=== PATIENT | male | born 1955 | race Caucasian/White ===

== ENCOUNTER 2017-09-27 07:15 | Day surgery (SDC) | payer BC ==
[2017-09-27] MEDS ORDERED: PROPOFOL 10 MG/ML VIAL IV ONE (07:16)
[2017-09-27] MEDS ORDERED: MIDAZOLAM HCL 2MG/2ML VIAL IV ONE (07:16)
[2017-09-27] MEDS ORDERED: LIDOCAINE 2% MDV (20MG/ML) 20ML VIAL IV ONE (07:16)
--- NOTE | 2017-09-27 12:30 | Operative Note ---
DATE OF SURGERY: 09/27/2017 OPERATION: COLONOSCOPY with cold forceps polypectomy. PREOPERATIVE DIAGNOSIS: History of adenomatous colon polyp. POSTOPERATIVE DIAGNOSIS: Diminutive sigmoid polyps, status post cold forceps removal. PREPARATION QUALITY: Good. ESTIMATED BLOOD LOSS: Minimal. SPECIMENS: Sigmoid polyp. COMPLICATIONS: None apparent. PROCEDURE: After informed consent was obtained from the patient, he was placed in the left lateral decubitus position in the endoscopy suite, sedated and monitored by the department of anesthesia. Digital rectal exam was unremarkable. A well-lubricated [id number] colonoscope was inserted into the rectum and advanced to the cecum. Preparation quality was good. The cecum, ileocecal valve, appendiceal orifice, ascending colon, transverse colon, and descending colon were free of inflammatory changes, mass lesions, or polyps. In the sigmoid colon there was a diminutive polyp removed with a cold forceps. Minimal bleeding was noted at the site. The remainder of the sigmoid colon and rectum were unremarkable. J-turn views of the anorectum were unrevealing. The endoscope was straightened, the rectal ampulla deflated, and the endoscope was removed. RECOMMENDATIONS: The patient should resume his medications and diet. I would recommend a repeat exam in 5 years. As always, thank you for allowing me to participate in the healthcare of your patients. CC: AMANDA MIRANDA MD, FACP MTDD
== END 2017-09-27 09:20 | disposition home or self-care (01) ==
LOC: HOP 07:15
PROVIDERS: ATTEND Internal Medicine Gastroenterology
DX: Z12.11 Encounter for screening for malignant neoplasm of colon (principal); Z86.010 Personal history of colon polyps; D12.5 Benign neoplasm of sigmoid colon; I10 Essential (primary) hypertension; E78.00 Pure hypercholesterolemia, unspecified; E11.8 Type 2 diabetes mellitus with unspecified complications

== ENCOUNTER 2017-11-17 14:29 | Emergency (ER) | payer BC ==
[2017-11-17 16:58] LABS: HEMATOCRIT 41.3 % (42.0-52.0); HEMOGLOBIN 14.7 gm/dl (14.0-18.0); MEAN CELL VOLUME 87.9 fl (81-97); MEAN CORPUSCULAR HEMOGLOBIN 31.3 pg (27-33); MEAN CORPUSCULAR HGB CONC 35.6 g/dl (32-36); PLATELET COUNT 252 K/uL (130-400); RED CELL DISTRIBUTION WIDTH 11.7 % (11.5-14.5); WHITE BLOOD COUNT W/O DIFF 9.7 K/uL (4.2-12.2)
[2017-11-17 17:08] LABS: INFLUENZA A NEGATIVE (NEGATIVE); INFLUENZA B NEGATIVE (NEGATIVE); STREP A SCREEN NEGATIVE (NEGATIVE)
[2017-11-17 17:10] LABS: BLOOD UREA NITROGEN 17 mg/dL (8-23); CREATININE 0.8 mg/dL (0.7-1.2); EST GLOMERULAR FILTRATION RATE > 60 mL/min
[2017-11-17 17:11] LABS: TOTAL PROTEIN 6.9 g/dL (6.6-8.7)
[2017-11-17 17:13] LABS: GLUCOSE,RANDOM 129 mg/dL (74-109)
[2017-11-17 17:15] LABS: ALB/GLOB RATIO 1.4 (1.1-1.8); ALKALINE PHOSPHATASE 41 U/L (40-129); ALT/SGPT 27 U/L (<41); AST/SGOT 21 U/L (10.0-50.0)
[2017-11-17 17:38] LABS: ERYTHROCYTE SEDIMENTATION RATE 27 mm/hr (0-20)
--- NOTE | 2017-11-17 17:46 | Emergency Department Record ---
History of Present Illness - General Chief Complaint: Fever Stated Complaint: FEVER,WEAKNESS,DIZZY Time Seen by Provider: 11/17/17 16:17 Source: Patient Mode of Arrival: Ambulatory Limitations: No limitations - History of Present Illness Initial Comments: pt was seen in urgent care on 11/13 for fever and cough. he was started on tamiflu though his test was neg. he got better for a day and then started running a fever again. he has a cough. he has a hx of lymphoma and oncologist was concerned. he also has a rash in his axilla Complaint: Fever Onset/Timin -: Days(s) Maximum Temperature: 101 F Temperature Source: Oral Context: Multiple patients with similar symptoms, Sick contacts Associated Symptoms: Chills, Rash, Shortness of breath Treatments Prior to Arrival: Other Treatment Prior to Arrival Comment:: tamiflu - Related Data Previous Rx's Medication Instructions Recorded Amoxicillin/Potassium Clav 1 each PO BID #20 tablet 11/17/17 [Augmentin 875Mg/125Mg] Allergies Allergy/AdvReac Type Severity Reaction Status Date / Time No Known Drug Allergies Allergy Verified 11/17/17 16:00 Travel Screening - Travel/Exposure Within Last 30 Days Have you traveled within the last 30 days?: No Review of Systems Reviewed: No additional complaints except as noted below Constitutional: Reports: As per HPI. Denies: Chills, Fever, Malaise, Night sweats, Weakness, Weight change Eyes: Reports: As per HPI. Denies: Eye discharge, Eye pain, Photophobia, Vision change ENT: Reports: As per HPI. Denies: Congestion, Dental pain, Ear pain, Epistaxis , Hearing loss, Throat pain Respiratory: Reports: As per HPI. Denies: Cough, Dyspnea, Hemoptysis, Stridor, Wheezes Cardiovascular: Reports: As per HPI. Denies: Arrhythmia, Chest pain, Dyspnea on exertion, Edema, Murmurs, Orthopnea, Palpitations, Paroxysmal nocturnal dyspnea, Rheumatic Fever, Syncope Endocrine: Reports: As per HPI. Denies: Fatigue, Heat or cold intolerance, Polydipsia, Polyuria Gastrointestinal: Reports: As per HPI. Denies: Abdominal pain, Constipation, Diarrhea, Hematemesis, Hematochezia, Melena, Nausea, Vomiting Genitourinary: Reports: As per HPI. Denies: Dysuria, Frequency, Hematuria, Incontinence, Retention, Testicular pain, Testicular mass, Urgency Musculoskeletal: Reports: As per HPI. Denies: Arthralgia, Back pain, Gout, Joint swelling, Myalgia, Neck pain Skin: Reports: As per HPI. Denies: Bruising, Change in color, Change in hair/ nails, Lesions, Pruritus, Rash Neurological: Reports: As per HPI. Denies: Abnormal gait, Confusion, Headache, Numbness, Paresthesias, Seizure, Tingling, Tremors, Vertigo, Weakness Psychiatric: Reports: As per HPI. Denies: Anxiety, Auditory hallucinations, Depression, Homicidal thoughts, Suicidal thoughts, Visual hallucinations Hematological/Lymphatic: Reports: As per HPI. Denies: Anemia, Blood Clots, Easy bleeding, Easy bruising, Swollen glands Past Medical History - SOCIAL HISTORY Smoking Status: Former smoker Alcohol Use: Occasional Drug Use: None - RESPIRATORY Hx Respiratory Disorders: Yes Hx Bronchitis: Yes Hx Pneumonia: Yes (not by xray but treated) - CARDIOVASCULAR Hx Cardio Disorders: Yes Hx Abnormal EKG: Yes Hx Cardiac Cath: Yes (1998) Hx Coronary Stent: Yes (08/2016) - NEURO Hx Neuro Disorders: No - GI Hx GI Disorders: No Hx of Polyps: Yes - Hx Genitourinary Disorders: No - ENDOCRINE Hx Endocrine Disorders: Yes Hx Diabetes: Yes (NIDDM) - MUSCULOSKELETAL Hx Musculoskeletal Disorders: Yes Hx Arthritis: Yes - PSYCH Hx Psych Problems: No - HEMATOLOGY/ONCOLOGY Hx Hematology/Oncology Disorders: Yes Hx Anemia: Yes Hx Cancer: Yes (lymphoma) Hx Blood Transfusions: Yes Hx Blood Transfusion Reaction: No Family Medical History Any Significant Family History?: Yes Hx Heart Disease: Grandparents Physical Exam - General General Appearance: Alert, Oriented x3, Cooperative, Mild distress - Head Head exam: Normal inspection - Eye Eye exam: Normal appearance, PERRL, EOMI Pupils: Normal accommodation - ENT ENT exam: Normal exam, Mucous membranes moist, Normal external ear exam, Normal orophraynx, TM's normal bilaterally Ear exam: Normal external inspection. negative: External canal tenderness Nasal Exam: Normal inspection. negative: Discharge, Sinus tenderness Mouth exam: Normal external inspection, Tongue normal Teeth exam: Normal inspection. negative: Dental caries Throat exam: Normal inspection. negative: Tonsillar erythema, Tonsillar exudate - Neck Neck exam: Normal inspection, Full ROM. negative: Tenderness - Respiratory Respiratory exam: Normal lung sounds bilaterally. negative: Respiratory distress - Cardiovascular Cardiovascular Exam: Normal rhythm, Normal heart sounds, Tachycardia - GI/Abdominal GI/Abdominal exam: Soft, Normal bowel sounds. negative: Tenderness - Rectal Rectal exam: Deferred - exam: Deferred - Extremities Extremities exam: Normal inspection, Full ROM, Normal capillary refill. negative: Tenderness - Back Back exam: Reports: Normal inspection, Full ROM. Denies: Muscle spasm, Rash noted, Tenderness - Neurological Neurological exam: Alert, Normal gait, Oriented X3, Reflexes normal - Psychiatric Psychiatric exam: Normal affect, Normal mood - Skin Skin exam: Dry, Intact, Normal color, Warm Course Vital Signs 11/17/17 16:00 Temperature 100.3 F H Pulse Rate 110 H Respiratory 28 H Rate Blood Pressure 146/97 Pulse Ox 96 Medical Decision Making - Lab Data Result diagrams: 11/17/17 16:48 11/17/17 16:48 Lab Results 11/17/17 11/17/17 11/17/17 Range/Units 16:48 16:48 16:48 WBC 9.7 (4.2-12.2) K/uL RBC 4.70 (4.40-5.70) M/uL Hgb 14.7 (14.0-18.0) gm/dl Hct 41.3 L (42.0-52.0) % MCV 87.9 (81-97) fl MCH 31.3 (27-33) pg MCHC 35.6 (32-36) g/dl RDW 11.7 (11.5-14.5) % Plt Count 252 (130-400) K/uL MPV 9.0 (7.4-10.4) fl Neutrophils % 82.0 H (47-80) % Band Neutrophils % 1.0 (0-5) % Eosinophils % Not Reportable Basophils % Not Reportable Lymphocytes 9.0 L (16-45) % Monocytes 7.0 (0-9) % ESR 27 H (0-20) mm/hr Eosinophil Count 1.0 (0-6) % Sodium 135 L (136-145) mmol/L Potassium 4.0 (3.4-4.5) mmol/L Chloride 96 L (98-107) mmol/L Carbon Dioxide 24.0 (22-29) mmol/L Anion Gap 15.0 (7-16) BUN 17 (8-23) mg/dL Creatinine 0.8 (0.7-1.2) mg/dL Estimated GFR > 60 mL/min Random Glucose 129 H (74-109) mg/dL Calcium 8.9 (8.8-10.2) mg/dL Total Bilirubin 1.10 H (0.2-1.0) mg/dL AST 21 (10.0-50.0) U/L ALT 27 (<41) U/L Alkaline Phosphatase 41 (40-129) U/L Total Protein 6.9 (6.6-8.7) g/dL Albumin 4.0 (4.0-5.0) g/dL Globulin 2.9 (1.4-4.8) gm/dL Albumin/Globulin Ratio 1.4 (1.1-1.8) Influenza Type A Ag Negative (NEGATIVE) Influenza Type B Ag Negative (NEGATIVE) Group A Strep Screen Negative (NEGATIVE) Disposition Disposition: Discharge Clinical Impression: Influenza, Rash Pneumonia Qualifiers: Pneumonia type: due to unspecified organism Laterality: left Lung location: lower lobe of lung Qualified Code(s): J18.1 - Lobar pneumonia, unspecified organism Disposition: Home, Self-Care Condition: (1) Good Instructions: Fever in Adults (ED), Influenza (ED), Pneumonitis (ED), Acute Rash (ED) Additional Instructions: follow up with family doctor. return sooner if worse. push fluids. continue tamiflu Prescriptions: Amoxicillin/Potassium Clav [Augmentin 875Mg/125Mg] 1 each PO BID #20 tablet Forms: Patient Portal Access Quality - Quality Measures Quality Measures: N/A - Blood Pressure Screening Does Patient Have Any of the Following: No Blood Pressure Classification: Hypertensive Reading Systolic Measurement: 146 Diastolic Measurement: 97 Screening for High Blood Pressure: < First Hypertensive BP, F/U Documented > [ G8950] First Hypertensive Follow-up Interventions: Follow-up with rescreen GT 1 day and LT 4 weeks.
[2017-11-17] MEDS ORDERED: AMOXICILLIN/POTASSIUM CLAV 875MG/125MG TABLET PO ONE (17:59)
--- NOTE | 2017-11-18 22:58 | RADIOLOGY REPORT ---
EXAM: CHEST 2 VIEWS HISTORY: FEVER AND WEAKNESS. TECHNIQUE: Chest x-ray, two views. COMPARISON: 10/31/2015. FINDINGS: There is chronic elevation of the left hemidiaphragm. Cardiac size is difficult to optimally assess. Small plate-like area of atelectasis or infiltrate is seen in the lower left lung. Lungs otherwise appear clear. No vascular congestion identified. There are nonspecific loops of bowel with a few air fluid levels in the upper abdomen. IMPRESSION: 1. CHRONIC ELEVATION OF THE LEFT HEMIDIAPHRAGM. 2. SMALL AREA OF PLATE-LIKE ATELECTASIS OR INFILTRATE AT THE LEFT LUNG BASE. 3. CHEST OTHERWISE UNREMARKABLE. 4. NONSPECIFIC BOWEL LOOPS WITH A FEW AIR FLUID LEVELS ARE SEEN IN THE UPPER ABDOMEN, BEST IDENTIFIED ON THE LATERAL STUDY. JOB NUMBER: [id number] [facility]
== END 2017-11-17 18:20 | disposition home or self-care (01) ==
LOC: ER 14:29
DX: J10.08 Influenza due to other identified influenza virus with other specified pneumonia (principal); J18.1 Lobar pneumonia, unspecified organism; R21 Rash and other nonspecific skin eruption; E11.9 Type 2 diabetes mellitus without complications; Z79.84 Long term (current) use of oral hypoglycemic drugs; Z85.72 Personal history of non-Hodgkin lymphomas; Z87.891 Personal history of nicotine dependence
CPT/HCPCS: 71046; 80053; 85027; 85651; 87400; 87880; 99283; 99284

== ENCOUNTER 2017-12-16 12:57 | Emergency (ER) | payer BC ==
--- NOTE | 2017-12-16 13:34 | Emergency Department Record ---
History of Present Illness - General Chief complaint: ENT Stated complaint: COUGH,RT EAR PAIN,CHEST CONGESTION,RASH SPOTTING Time Seen by Provider: 12/16/17 13:20 Source: Patient Mode of Arrival: Ambulatory Limitations: No limitations - History of Present Illness Initial comments: The patient is here due to a cough and congestion for about a week. He now has R ear pain also. He denies any CP, SOB, or HAYDEN but he has had a rash to the insides of the upper arms for about 2 months. The patient was here in the ER 4 weeks ago with a similar issue and was treated with Augmentin and Tamiflu. complaint: Other Onset/Timin -: Week(s) - Related Data Previous Rx's Medication Instructions Recorded Azithromycin [Zithromax] 250 mg PO DAILY #4 tab 12/16/17 Benzonatate [Tessalon Perle] 100 mg PO TID #20 capsule 12/16/17 Allergies Allergy/AdvReac Type Severity Reaction Status Date / Time No Known Drug Allergies Allergy Verified 11/17/17 16:00 Travel Screening - Travel/Exposure Within Last 30 Days Have you traveled within the last 30 days?: No - Travel/Exposure Within Last Year Have you traveled outside the [place] in the last year?: No - Additonal Travel Details Have you been exposed to anyone with a communicable illness?: No - Travel Symptoms Symptom Screening: None - Additional Travel Comment Additional Travel/Exposure Comment: pt travelled to [place] 2 wks ago Review of Systems Constitutional: Denies: Chills, Fever Eyes: Denies: Eye discharge ENT: Denies: Congestion, Dental pain Past Medical History - SOCIAL HISTORY Smoking Status: Former smoker Alcohol Use: Occasional Drug Use: None - RESPIRATORY Hx Respiratory Disorders: Yes Hx Bronchitis: Yes Hx Pneumonia: Yes (not by xray but treated) - CARDIOVASCULAR Hx Cardio Disorders: Yes Hx Abnormal EKG: Yes Hx Cardiac Cath: Yes (1998) Hx Coronary Stent: Yes (08/2016) - NEURO Hx Neuro Disorders: No - GI Hx GI Disorders: No Hx of Polyps: Yes - Hx Genitourinary Disorders: No - ENDOCRINE Hx Endocrine Disorders: Yes Hx Diabetes: Yes (NIDDM) - MUSCULOSKELETAL Hx Musculoskeletal Disorders: Yes Hx Arthritis: Yes - PSYCH Hx Psych Problems: No - HEMATOLOGY/ONCOLOGY Hx Hematology/Oncology Disorders: Yes Hx Anemia: Yes Hx Cancer: Yes (lymphoma) Hx Blood Transfusions: Yes Hx Blood Transfusion Reaction: No Family Medical History Any Significant Family History?: Yes *Diabetes Comment: Uncle on Mothers side Hx Heart Disease: Grandparents *Heart Comment: Mothers side (tear/hole in heart between chambers) Physical Exam - General General Appearance: Alert, Oriented x3, Cooperative, No acute distress - Head Head exam: Atraumatic, Normocephalic, Normal inspection - Eye Eye exam: Normal appearance, PERRL - ENT ENT exam: Normal orophraynx. negative: Normal exam, TM's normal bilaterally ( The L TM is normal but the R TM has mild erythema. There is no loss of landmarks or obvious effusion.) Throat exam: Normal inspection. negative: Tonsillar erythema, Tonsillar exudate - Neck Neck exam: Normal inspection, Full ROM. negative: Tenderness - Respiratory Respiratory exam: Normal lung sounds bilaterally. negative: Respiratory distress - Cardiovascular Cardiovascular Exam: Regular rate, Normal rhythm, Normal heart sounds - GI/Abdominal GI/Abdominal exam: Soft, Normal bowel sounds. negative: Tenderness - Extremities Extremities exam: Other (There is a blanching macular papular erythematous rash to the medial upper arms.). negative: Normal inspection Course Vital Signs 12/16/17 13:01 Temperature 98.7 F Pulse Rate 91 H Respiratory 24 Rate Blood Pressure 149/92 Pulse Ox 95 - Reevaluation(s) Reevaluation #1: I did discuss the neg xray with the patient and the need for an oral Abx. He is to stop the Metformin due to it possibly causing his rash and see his PCP later this week. 12/16/17 14:37 Medical Decision Making - Data Complexity MDM Data: X-Ray Ordered and/or Reviewed - Radiology Data Radiology results: Report reviewed (CXR: Neg per Rad.) Disposition Disposition: Discharge Clinical Impression: Bronchitis Disposition: Home, Self-Care Condition: (2) Stable Instructions: Acute Bronchitis (ED) Additional Instructions: Please continue the Zithromax and Tessalon as directed. Stop the Metformin and see Dr. Estrella later this week for recheck. Return to the ER for any worsening symptoms. Prescriptions: Azithromycin [Zithromax] 250 mg PO DAILY #4 tab Benzonatate [Tessalon Perle] 100 mg PO TID #20 capsule Forms: Patient Portal Access Time of Disposition: 14:13 Quality - Quality Measures Quality Measures: N/A - Blood Pressure Screening View Details: Yes Does Patient Have Any of the Following: Active Dx of HTN Blood Pressure Classification: Hypertensive Reading Systolic Measurement: 149 Diastolic Measurement: 92 Screening for High Blood Pressure: Patient Exclusion, Hx of HTN [G9744]
[2017-12-16] MEDS ORDERED: BENZONATATE 100 MG CAPSULE PO ONE (14:05)
[2017-12-16] MEDS ORDERED: AZITHROMYCIN 500 MG TABLET PO ONE (14:05)
--- NOTE | 2017-12-17 07:55 | RADIOLOGY REPORT ---
EXAM: CHEST, TWO VIEWS HISTORY: DIFFICULTY IN BREATHING. TECHNIQUE: Frontal and lateral views of the chest were performed. FINDINGS: The heart size is normal. Elevation of the left hemidiaphragm. No pulmonary vascular congestion. No infiltrate or pleural effusion. The osseous structures are normal. IMPRESSION: NO ACUTE PULMONARY DISEASE PROCESS. JOB NUMBER: [id number] MTDD
== END 2017-12-16 14:24 | disposition home or self-care (01) ==
LOC: ER 12:57
DX: J20.9 Acute bronchitis, unspecified (principal); R21 Rash and other nonspecific skin eruption; R06.00 Dyspnea, unspecified; E11.9 Type 2 diabetes mellitus without complications; Z87.891 Personal history of nicotine dependence; I10 Essential (primary) hypertension; Z79.84 Long term (current) use of oral hypoglycemic drugs
CPT/HCPCS: 71046; 99283

== ENCOUNTER 2019-04-19 17:56 | Emergency (ER) | payer BC ==
[2019-04-19] MEDS ORDERED: 0.9 % SODIUM CHLORIDE 1,000 ML BAG IV ONE ×2 (18:13→20:21)
--- NOTE | 2019-04-19 18:15 | Emergency Department Record ---
History of Present Illness - General Chief complaint: Fatigue and Weakness Stated complaint: WEAKNESS/HAYDEN Time Seen by Provider: 04/19/19 18:03 Source: Patient Mode of Arrival: Ambulatory Limitations: No limitations - History of Present Illness Initial comments: pt is currently receiving chemo for lymphoma. he feels extremely weak and fell down earlier, he denies hitting his head. he has nausea and is vomiting. he is sob and has heaviness in his chest. he has a 4/10 headache. MD Complaint: Generalized weakness, Lack of energy -: Days(s) Location: Generalized Consistency: Getting worse Improves with: None Worsens with: Exertion Associated Symptoms: Nausea/vomiting, Shortness of breath - Rosina Coma Scale Eye Response: (4) Open spontaneously Motor Response: (6) Obeys commands Verbal Response: (5) Oriented Rosina Total: 15 - Related Data Home Medications Medication Instructions Recorded Confirmed Last Taken Hydrocodone/Acetaminophen [[place] 1 each PO ASDIR PRN 04/19/19 04/19/19 04/19/19 5-325 Tablet] Ibuprofen 800 mg PO Q8HR 04/19/19 04/19/19 04/19/19 Allergies Allergy/AdvReac Type Severity Reaction Status Date / Time No Known Drug Allergies Allergy Verified 11/17/17 16:00 Review of Systems Reviewed: No additional complaints except as noted below Constitutional: Reports: As per HPI, Weakness. Denies: Chills, Fever, Malaise, Night sweats, Weight change Eyes: Reports: As per HPI. Denies: Eye discharge, Eye pain, Photophobia, Vision change ENT: Reports: As per HPI. Denies: Congestion, Dental pain, Ear pain, Epistaxis, Hearing loss, Throat pain Respiratory: Reports: As per HPI, Dyspnea. Denies: Cough, Hemoptysis, Stridor, Wheezes Cardiovascular: Reports: As per HPI. Denies: Arrhythmia, Chest pain, Dyspnea on exertion, Edema, Murmurs, Orthopnea, Palpitations, Paroxysmal nocturnal dyspnea, Rheumatic Fever, Syncope Endocrine: Reports: As per HPI. Denies: Fatigue, Heat or cold intolerance, Polydipsia, Polyuria Gastrointestinal: Reports: As per HPI. Denies: Abdominal pain, Constipation, Diarrhea, Hematemesis, Hematochezia, Melena, Nausea, Vomiting Genitourinary: Reports: As per HPI. Denies: Dysuria, Frequency, Hematuria, Incontinence, Retention, Testicular pain, Testicular mass, Urgency Musculoskeletal: Reports: As per HPI. Denies: Arthralgia, Back pain, Gout, Jacklyn int swelling, Myalgia, Neck pain Skin: Reports: As per HPI. Denies: Bruising, Change in color, Change in hair/nails, Lesions, Pruritus, Rash Neurological: Reports: As per HPI. Denies: Abnormal gait, Confusion, Headache, Numbness, Paresthesias, Seizure, Tingling, Tremors, Vertigo, Weakness Psychiatric: Reports: As per HPI. Denies: Anxiety, Auditory hallucinations, Depression, Homicidal thoughts, Suicidal thoughts, Visual hallucinations Hematological/Lymphatic: Reports: As per HPI. Denies: Anemia, Blood Clots, Easy bleeding, Easy bruising, Swollen glands Past Medical History - SOCIAL HISTORY Smoking Status: Former smoker Drug Use: None - RESPIRATORY Hx Respiratory Disorders: Yes Hx Bronchitis: Yes Hx Pneumonia: Yes (not by xray but treated) - CARDIOVASCULAR Hx Cardio Disorders: Yes Hx Abnormal EKG: Yes Hx Cardiac Cath: Yes (1998) Hx Coronary Stent: Yes (08/2016) - NEURO Hx Neuro Disorders: No - GI Hx GI Disorders: No Hx of Polyps: Yes - Hx Genitourinary Disorders: No - ENDOCRINE Hx Endocrine Disorders: Yes Hx Diabetes: Yes (NIDDM) - MUSCULOSKELETAL Hx Musculoskeletal Disorders: Yes Hx Arthritis: Yes - PSYCH Hx Psych Problems: No - HEMATOLOGY/ONCOLOGY Hx Hematology/Oncology Disorders: Yes Hx Anemia: Yes Hx Cancer: Yes (lymphoma) Hx Blood Transfusions: Yes Hx Blood Transfusion Reaction: No Family Medical History *Diabetes Comment: Uncle on Mothers side Hx Heart Disease: Grandparents *Heart Comment: Mothers side (tear/hole in heart between chambers) Physical Exam - General General Appearance: Alert, Oriented x3, Cooperative, Mild distress - Head Head exam: Normal inspection - Eye Eye exam: Normal appearance, PERRL, EOMI Pupils: Normal accommodation - ENT ENT exam: Normal exam, Mucous membranes moist, Normal external ear exam, Normal orophraynx Ear exam: Normal external inspection. negative: External canal tenderness Nasal Exam: Normal inspection. negative: Discharge, Sinus tenderness Mouth exam: Normal external inspection, Tongue normal Teeth exam: Normal inspection. negative: Dental caries Throat exam: Normal inspection. negative: Tonsillar erythema, Tonsillar exudate - Neck Neck exam: Normal inspection, Full ROM. negative: Tenderness - Respiratory Respiratory exam: Normal lung sounds bilaterally. negative: Respiratory distress - Cardiovascular Cardiovascular Exam: Regular rate, Normal rhythm, Normal heart sounds - GI/Abdominal GI/Abdominal exam: Soft, Normal bowel sounds. negative: Tenderness - Rectal Rectal exam: Deferred - exam: Deferred - Extremities Extremities exam: Normal inspection, Full ROM, Normal capillary refill. negative: Tenderness - Back Back exam: Reports: Normal inspection, Full ROM. Denies: Muscle spasm, Rash noted, Tenderness - Neurological Neurological exam: Alert, CN II-XII intact, Normal gait, Oriented X3 - Psychiatric Psychiatric exam: Normal affect, Normal mood - Skin Skin exam: Dry, Intact, Normal color, Warm Course - Reevaluation(s) Reevaluation #1: 04/19/19 20:24 headache is gone. pt still a little dizzy. d/w dr valencia Reevaluation #2: 04/19/19 22:51 pt states szymanski is back and now has l hand numbness. pt sent for head ct Medical Decision Making - Lab Data Result diagrams: 04/19/19 18:28 04/19/19 18:28 Critical Care Time Critical Care Time: Yes Total Critical Care Time: 60 Disposition Disposition: Transfer Clinical Impression: Subdural hematoma Disposition: Acute Care Hospital Transfer Transfer To: [facility] Reason For Transfer: needs neurosurgeon Accepting Physician: mynor arguelles benton Time Discussed w/Accepting Physician: 23:07 Forms: Patient Portal Access Quality - Quality Measures Quality Measures: N/A - Blood Pressure Screening Does Patient Have Any of the Following: No Blood Pressure Classification: Hypertensive Reading Systolic Measurement: 154 Diastolic Measurement: 96 Screening for High Blood Pressure: < First Hypertensive BP, F/U Documented > [G8950] First Hypertensive Follow-up Interventions: Follow-up with rescreen GT 1 day and LT 4 weeks.
[2019-04-19] MEDS ORDERED: ONDANSETRON HCL IV 4 MG/2 ML VIAL IVP ONE ×2 (18:20→23:21)
[2019-04-19] MEDS ORDERED: KETOROLAC 30 MG/ML VIAL IVP ONE (18:20)
[2019-04-19 18:57] LABS: BLOOD UREA NITROGEN 12 mg/dL (8-23); CREATININE 0.8 mg/dL (0.7-1.2); EST GLOMERULAR FILTRATION RATE > 60 mL/min
[2019-04-19 18:58] LABS: LIPASE 103 U/L (13-60); TOTAL PROTEIN 10.5 g/dL (6.6-8.7)
[2019-04-19 19:00] LABS: GLUCOSE,RANDOM 146 mg/dL (74-109)
[2019-04-19 19:02] LABS: ALB/GLOB RATIO 0.4 (1.1-1.8); ALBUMIN 3.2 g/dL (4.0-5.0); ALT/SGPT 15 U/L (<41); AST/SGOT 23 U/L (10.0-50.0)
[2019-04-19 19:03] LABS: ALKALINE PHOSPHATASE 68 U/L (40-129)
[2019-04-19 19:07] LABS: HEMOGLOBIN 8.5 gm/dl (14.0-18.0); MEAN CELL VOLUME 89.2 fl (81-97); MEAN CORPUSCULAR HGB CONC 35.4 g/dl (32-36); MEAN PLATELET VOLUME 9.4 fl (7.4-10.4); PLATELET COUNT 85 K/uL (130-400); RED BLOOD COUNT 2.69 M/uL (4.40-5.70); RED CELL DISTRIBUTION WIDTH 14.1 % (11.5-14.5); WHITE BLOOD COUNT W/O DIFF 2.8 K/uL (4.2-12.2)
[2019-04-19 19:08] LABS: MEAN CORPUSCULAR HEMOGLOBIN 31.5 pg (27-33)
[2019-04-19 19:09] LABS: ABSOLUTE NEUTROPHIL COUNT 1.19
[2019-04-19 19:11] LABS: PLATELET ESTIMATE DECREASED (NORMAL)
[2019-04-19 20:01] LABS: URINE APPEARANCE CLEAR; URINE BILIRUBIN NEGATIVE (NEGATIVE); URINE BLOOD NEGATIVE (NEGATIVE); URINE COLOR YELLOW; URINE GLUCOSE (UA) NEGATIVE (NEGATIVE); URINE KETONE TRACE (NEGATIVE); URINE LEUKOCYTE ESTERASE NEGATIVE (NEGATIVE); URINE NITRITE NEGATIVE (NEGATIVE); URINE PROTEIN NEGATIVE (NEGATIVE); URINE UROBILINOGEN 0.2 E.U./dL (0.20 - 1.00)
[2019-04-19] MEDS ORDERED: ACETAMINOPHEN 500 MG TABLET PO ONE (21:02)
[2019-04-19] MEDS ORDERED: TRANEXAMIC ACID 1,000 MG in 0.9 % SODIUM CHLORIDE 100ML 100 ML IV ONE (23:04)
[2019-04-19] MEDS ORDERED: TRANEXAMIC ACID 1,000 MG in 0.9 % SODIUM CHLORIDE 500ML 500 ML IV ONE (23:05)
[2019-04-19 23:12] LABS: INR 1.1; PARTIAL THROMBOPLASTIN TIME 26.9 SECONDS (24.5-39.1); PROTHROMBIN TIME (PATIENT) 10.9 SECONDS (9.5-12.1)
[2019-04-19] MEDS ORDERED: HYDROMORPHONE HCL 2 MG/ML VIAL IVP ONE (23:14)
[2019-04-19] MEDS ORDERED: LEVETIRACETAM 500 MG/5 ML VIAL IV SCH (23:15)
--- NOTE | 2019-04-21 12:59 | CT ANGIOGRAM REPORT ---
EXAM: CT ANGIOGRAM OF THE CHEST WITH POST PROCESSING HISTORY: SHORTNESS OF BREATH. ELEVATED D-DIMER. DIFFICULTY BREATHING. TECHNIQUE: Standard CT angiography of the chest was performed with post processing following the bolus administration of 90 ml of Omnipaque 350. Additional coronal and sagittal maximum intensity projection reformatted images were performed on an independent workstation. Comparison: 04/15/19. FINDINGS: There is mild breathing motion artifact. The pulmonary arterial tree is otherwise normal. Ther is no pulmonary embolus. There is no aortic aneurysm or dissection. There is no mediastinal or hilar lymphadenopathy. Coronary artery calcifications are present. There is no pericardial effusion. There is chronic elevation of the left hemidiaphragm with associated left basilar atelectasis or scarring. Mild dependent atelectasis is also present within both lungs. There are no acute infiltrates or effusions. There is no pneumothorax. The visualized portions of the upper abdomen are unremarkable. The chest wall and axillary regions are normal. There are no acute osseous abnormalities. IMPRESSION: 1. NO EVIDENCE FOR PULMONARY EMBOLUS OR OTHER ACUTE CARDIOPULMONARY PROCESS. 2. CHRONIC ELEVATION OF THE LEFT HEMIDIAPHRAGM WITH ASSOCIATED LEFT BASILAR ATELECTASIS OR SCARRING. JOB NUMBER: [id number] MTDD
--- NOTE | 2019-04-21 13:06 | CT SCAN REPORT ---
EXAM: CT SCAN OF THE BRAIN WITHOUT CONTRAST HISTORY: FRONTAL REGION HEADACHE WITH DIZZINESS AND LEFT HAND NUMBNESS. TECHNIQUE: Standard CT imaging of the brain was performed in the axial plane without contrast. Comparison: None. Encounter: Initial. Hand dominance: Left. FINDINGS: An acute subdural hematoma is present within the right frontal parietal and temporal regions. The subdural measures up to 2.4 cm in maximal thickness within the right frontal parietal region. There is effacement of the adjacent brain parenchyma with approximately 7 mm of midline shift to the left. There is no visible intraparenchymal hemorrhage or subarachnoid hemorrhage. The brain parenchyma is otherwise normal. There is no mass. The skull is intact. The basilar cisterns ans cerebellar tonsils are normal. The orbits and sinus are normal. There is nonspecific fluid within the left middle ear cavity and mastoid air cells. The right mastoid air cells are clear. IMPRESSION: 1. LARGE RIGHT FRONTAL PARIETAL AND TEMPORAL SUBDURAL HEMATOMA MEASURING APPROXIMATELY 2.4 CM IN THICKNESS. THERE IS ASSOCIATED EFFACEMENT OF THE BRAIN PARENCHYMA WITH 7 MM OF MIDLINE SHIFT TO THE LEFT. 2. NO ACUTE INTRACRANIAL HEMORRHAGE. 3. MILD NONSPECIFIC FLUID WITHIN THE LEFT MIDDLE EAR CAVITY AND MASTOID AIR CELLS. 4. A PRELIMINARY REPORT OF THE SUBDURAL HEMATOMA WAS PHONED TO DR. JUAN LUIS ALANIS AT 10:32 P.M. JOB NUMBER: [id number] MTDD
== END 2019-04-19 23:30 | disposition short-term general hospital (02) ==
LOC: ER 17:56
DX: S06.5X9A Traumatic subdural hemorrhage with loss of consciousness of unspecified duration, initial encounter (principal); C85.90 Non-Hodgkin lymphoma, unspecified, unspecified site; R07.89 Other chest pain; R11.2 Nausea with vomiting, unspecified; R20.0 Anesthesia of skin; R06.02 Shortness of breath; R42 Dizziness and giddiness; R51 Headache; E11.9 Type 2 diabetes mellitus without complications; Z79.84 Long term (current) use of oral hypoglycemic drugs; Z87.891 Personal history of nicotine dependence; W19.XXXA Unspecified fall, initial encounter
CPT/HCPCS: 70450; 71275; 80053; 81003; 83690; 83880; 84484; 85027; 85379; 85610; 85730; 93005; 93010; 96361; 96374; 96375; 96376; 99291; J1885; J2405; J7030; J7040